=== PATIENT | female | born 2005 | race Caucasian/White ===

== ENCOUNTER 2024-06-01 05:33 | Emergency (ER) | payer OTHER ==
[~2024-06-01] VITALS: Ht 162.6 cm; Wt 61.4 kg
[2024-06-01] MEDS ORDERED: VYVANSE10 MG PO (05:50)
[2024-06-01] MEDS ORDERED: VYVANSE30 MG PO (05:50)
[2024-06-01] MEDS ORDERED: SINGULAIR PO (05:51)
[2024-06-01] MEDS ORDERED: NS 1,000 ML IV ONE (06:45)
[2024-06-01] MEDS ORDERED: Ketorolac 30 MG/ML VIAL IV ONE (06:45)
[2024-06-01 07:01] LABS: BASO # 0.03 K/mm3 (0.02-0.10); EOS # 0.68 K/mm3 (0.04-0.40); EOS % 4.7 % (0.1-4.0); HEMATOCRIT 38.7 % (35.0-45.0); HEMOGLOBIN 13.7 g/dL (12.0-15.0); LYMPH# 1.18 K/mm3 (1.20-3.40); MEAN CELL VOLUME 89 fl (78-95); MEAN CORPUSCULAR HEMOGLOBIN 32 pg (26-32); MEAN CORPUSCULAR HGB CONC 35 g/dL (33-37); MEAN PLATELET VOLUME 9.8 fl (7.4-10.4); MONO # 0.92 K/mm3 (0.10-0.60); NEU # 11.56 K/mm3 (1.40-6.50); PLATELET COUNT 235 K/mm3 (130-400); RED BLOOD COUNT 4.33 M/mm3 (4.10-5.30); RED CELL DISTRIBUTION WIDTH 12.1 % (11.5-14.5); WHITE BLOOD COUNT 14.4 K/mm3 (4.8-10.8)
[2024-06-01 07:09] LABS: ALBUMIN 4.6 g/dL (3.5-5.0)
[2024-06-01 07:10] LABS: CALCIUM 9.3 mg/dL (8.3-10.5)
[2024-06-01 07:11] LABS: TOTAL PROTEIN 6.9 g/dL (6.4-8.3)
[2024-06-01 07:13] LABS: TOTAL BILIRUBIN 2.4 mg/dL (0.2-1.2)
[2024-06-01 07:24] LABS: URINE APPEARANCE SLIGHTLY CLOUDY (CLEAR); URINE BILIRUBIN 1+ (NEGATIVE); URINE BLOOD NEGATIVE (NEGATIVE); URINE COLOR YELLOW (YELLOW); URINE GLUCOSE NEGATIVE (NEGATIVE); URINE KETONE NEGATIVE (NEGATIVE); URINE LEUKOCYTE ESTERASE NEGATIVE (NEGATIVE); URINE MUCUS PRESENT (NOT PRESENT); URINE NITRATE NEGATIVE (NEGATIVE); URINE PROTEIN(semi-quant) NEGATIVE (NEGATIVE); URINE WBC 0-1 /hpf (0-3)
[2024-06-01] MEDS ORDERED: Iohexol 300 - 100 ML VIAL IV ONE (07:33)
[2024-06-01] MEDS ORDERED: Ondansetron 4 MG/2 ML VIAL IV ONE (08:15)
[2024-06-01] MEDS ORDERED: fentaNYL 100 MCG/2 ML VIAL IV ONE (08:15)
[2024-06-01] MEDS ORDERED: Piperacillin/Tazobactam Sodium 3.375 GM in NS 100 ML IV ONE (08:15)
[2024-06-01] MEDS ORDERED: NS 1,000 ML IV SCH (08:30)
[2024-06-01 09:45] VITALS: BP 116/72
== END 2024-06-01 09:50 | disposition short-term general hospital (02) ==
LOC: ED 05:33
PROVIDERS: Family Medicine
DX: R10.31 Right lower quadrant pain (principal)
CPT/HCPCS: J1885; J2405; J2543; J3010; J7030; Q9967